=== PATIENT | male | born 1945 | race Caucasian/White ===

== ENCOUNTER 2020-04-05 15:58 | Inpatient (IN) | payer MEDICARE, OTHER ==
[~2020-04-05] VITALS: Ht 180.3 cm; Wt 97.5 kg
[2020-04-05] MEDS ORDERED: ATOR10TA PO (16:29)
[2020-04-05] MEDS ORDERED: TAMS-12 PO (16:29)
[2020-04-05] MEDS ORDERED: BLOOD SUGAR DIAGNOSTIC 1 EACH STRIP IN ONE (16:30)
[2020-04-05] MEDS ORDERED: MAG HYDROX/AL HYDROX/SIMETH 30 ML UDC PO PRN (16:30)
[2020-04-05] MEDS ORDERED: TEMAZEPAM 7.5 MG CAPSULE PO PRN (16:30)
[2020-04-05] MEDS ORDERED: MAGNESIUM HYDROXIDE 30 ML UDC PO PRN (16:30)
[2020-04-05] MEDS ORDERED: UNK HTN (16:42)
[2020-04-05 19:47] VITALS: BP 117/71
[2020-04-05] MEDS: ACETAMINOPHEN 325 MG TABLET PO PRN (20:09)
[2020-04-05] MEDS: ATORVASTATIN 10 MG TABLET PO SCH (21:29)
[2020-04-05] MEDS: TAMSULOSIN 0.4 MG CAP.SR.24H PO SCH (21:29)
[2020-04-06] MEDS: ACETAMINOPHEN 325 MG TABLET PO PRN (02:04)
[2020-04-06 08:00] VITALS: BP 124/74
[2020-04-06 08:03] LABS: CHOLESTEROL 106 mg/dL (<200); HDL CHOLESTEROL 35 mg/dL (40-60); LDL 59 mg/dL (0-99); TRIGLYCERIDES 215 mg/dL (30-150)
[2020-04-06 09:26] LABS: ALBUMIN 3.2 g/dL (3.4-5.0); BILIRUBIN,TOTAL 0.7 mg/dL (0.2-1.0); CALCIUM, SERUM 8.9 mg/dL (8.5-10.1); CREATININE 0.9 mg/dL (0.6-1.3); POTASSIUM 3.9 mmol/L (3.5-5.1)
[2020-04-06] MEDS: risperiDONE-M 0.5 MG TAB.RAPDIS PO SCH ×3 (11:00→21:00)
[2020-04-06] MEDS: DIVALPROEX SODIUM 125 MG CAP.SPRINK PO SCH ×2 (12:55→16:33)
[2020-04-06 16:00] VITALS: BP 153/86
[2020-04-06 20:51] VITALS: BP 132/87
[2020-04-06] MEDS: ATORVASTATIN 10 MG TABLET PO SCH (21:46)
[2020-04-06] MEDS: TAMSULOSIN 0.4 MG CAP.SR.24H PO SCH (21:46)
[2020-04-07] MEDS: ACETAMINOPHEN 325 MG TABLET PO PRN (02:15)
[2020-04-07 08:00] VITALS: BP 128/78
[2020-04-07] MEDS: risperiDONE-M 0.5 MG TAB.RAPDIS PO SCH ×4 (08:44→21:00)
[2020-04-07] MEDS: DIVALPROEX SODIUM 125 MG CAP.SPRINK PO SCH ×4 (08:45→16:05)
[2020-04-07 16:00] VITALS: BP 145/107
[2020-04-07 20:00] VITALS: BP 139/93
[2020-04-07] MEDS: TAMSULOSIN 0.4 MG CAP.SR.24H PO SCH (21:35)
[2020-04-07] MEDS: ATORVASTATIN 10 MG TABLET PO SCH (21:35)
[2020-04-08] MEDS: ACETAMINOPHEN 325 MG TABLET PO PRN (00:11)
[2020-04-08 08:00] VITALS: BP 132/72
[2020-04-08] MEDS: risperiDONE-M 0.5 MG TAB.RAPDIS PO SCH ×4 (08:00→20:45)
[2020-04-08] MEDS: DIVALPROEX SODIUM 125 MG CAP.SPRINK PO SCH ×4 (08:59→16:24)
[2020-04-08 16:00] VITALS: BP 129/71
[2020-04-08 20:00] VITALS: BP 140/87
[2020-04-08] MEDS: ATORVASTATIN 10 MG TABLET PO SCH (21:07)
[2020-04-08] MEDS: TAMSULOSIN 0.4 MG CAP.SR.24H PO SCH (21:08)
[2020-04-09 08:00] VITALS: BP 128/78
[2020-04-09] MEDS: risperiDONE-M 0.5 MG TAB.RAPDIS PO SCH ×3 (08:00→20:48)
[2020-04-09] MEDS: DIVALPROEX SODIUM 125 MG CAP.SPRINK PO SCH ×3 (08:17→16:18)
[2020-04-09 16:00] VITALS: BP 115/71
[2020-04-09 20:20] VITALS: BP 113/71
[2020-04-09] MEDS: ATORVASTATIN 10 MG TABLET PO SCH (21:30)
[2020-04-09] MEDS: TAMSULOSIN 0.4 MG CAP.SR.24H PO SCH (21:31)
[2020-04-10] MEDS: ACETAMINOPHEN 325 MG TABLET PO PRN (06:04)
[2020-04-10 08:00] VITALS: BP 119/81
[2020-04-10] MEDS: risperiDONE-M 0.5 MG TAB.RAPDIS PO SCH ×4 (08:00→21:00)
[2020-04-10] MEDS: DIVALPROEX SODIUM 125 MG CAP.SPRINK PO SCH ×5 (09:00→17:30)
[2020-04-10 16:00] VITALS: BP 125/80
[2020-04-10 19:57] VITALS: BP 121/80
[2020-04-10] MEDS: TAMSULOSIN 0.4 MG CAP.SR.24H PO SCH (21:39)
[2020-04-10] MEDS: ATORVASTATIN 10 MG TABLET PO SCH (21:43)
[2020-04-11 08:00] VITALS: BP 122/73
[2020-04-11] MEDS: risperiDONE-M 0.5 MG TAB.RAPDIS PO SCH ×6 (08:00→21:25)
[2020-04-11] MEDS: DIVALPROEX SODIUM 125 MG CAP.SPRINK PO SCH ×5 (08:33→16:54)
[2020-04-11] MEDS ORDERED: OLANZAPINE 10 MG VIAL IM PRN (12:30)
[2020-04-11 16:00] VITALS: BP 108/71
[2020-04-11 20:27] VITALS: BP 143/88
[2020-04-11] MEDS: ATORVASTATIN 10 MG TABLET PO SCH (21:25)
[2020-04-11] MEDS: TAMSULOSIN 0.4 MG CAP.SR.24H PO SCH (21:25)
[2020-04-11] MEDS: LORAZEPAM 0.5 MG TABLET PO PRN (21:26)
[2020-04-12 08:00] VITALS: BP 119/75
[2020-04-12] MEDS: risperiDONE-M 0.5 MG TAB.RAPDIS PO SCH ×2 (08:29→21:21)
[2020-04-12] MEDS: DIVALPROEX SODIUM 125 MG CAP.SPRINK PO SCH ×5 (08:33→21:21)
[2020-04-12] MEDS ORDERED: OLANZAPINE 10 MG VIAL IM PRN ×2 (13:00)
[2020-04-12 16:00] VITALS: BP 111/62
[2020-04-12 20:18] VITALS: BP 118/74
[2020-04-12] MEDS: ATORVASTATIN 10 MG TABLET PO SCH (21:21)
[2020-04-12] MEDS: TAMSULOSIN 0.4 MG CAP.SR.24H PO SCH (21:21)
[2020-04-13 08:00] VITALS: BP 135/76
[2020-04-13] MEDS: DIVALPROEX SODIUM 125 MG CAP.SPRINK PO SCH ×2 (08:43→21:47)
[2020-04-13] MEDS: risperiDONE-M 0.5 MG TAB.RAPDIS PO SCH ×2 (08:44→21:46)
[2020-04-13 16:00] VITALS: BP 105/72
[2020-04-13 20:44] VITALS: BP 124/76
[2020-04-13] MEDS: TAMSULOSIN 0.4 MG CAP.SR.24H PO SCH (21:26)
[2020-04-13] MEDS: ATORVASTATIN 10 MG TABLET PO SCH (22:00)
[2020-04-14 08:00] VITALS: BP 117/83
[2020-04-14] MEDS: risperiDONE-M 0.5 MG TAB.RAPDIS PO SCH ×2 (08:14→21:02)
[2020-04-14] MEDS: DIVALPROEX SODIUM 125 MG CAP.SPRINK PO SCH ×2 (09:12→21:02)
[2020-04-14 16:00] VITALS: BP_SYST 122; BP_SYST 134; BP_DIAS 77; BP_DIAS 98
[2020-04-14 19:50] VITALS: BP 112/63
[2020-04-14] MEDS: ATORVASTATIN 10 MG TABLET PO SCH (21:01)
[2020-04-14] MEDS: TAMSULOSIN 0.4 MG CAP.SR.24H PO SCH (21:01)
[2020-04-15 08:00] VITALS: BP 110/75
[2020-04-15] MEDS: risperiDONE-M 0.5 MG TAB.RAPDIS PO SCH ×2 (08:54→20:58)
[2020-04-15] MEDS: DIVALPROEX SODIUM 125 MG CAP.SPRINK PO SCH ×2 (08:54→20:58)
[2020-04-15 16:00] VITALS: BP 118/67
[2020-04-15 19:57] VITALS: BP 117/78
[2020-04-15] MEDS: ATORVASTATIN 10 MG TABLET PO SCH (21:04)
[2020-04-15] MEDS: TAMSULOSIN 0.4 MG CAP.SR.24H PO SCH (21:06)
[2020-04-16 08:00] VITALS: BP 121/84
[2020-04-16] MEDS: risperiDONE-M 0.5 MG TAB.RAPDIS PO SCH ×2 (08:37→21:28)
[2020-04-16] MEDS: DIVALPROEX SODIUM 125 MG CAP.SPRINK PO SCH ×2 (08:59→21:26)
[2020-04-16 13:16] LABS: BASOPHILS % (AUTO) 0.5 % (0.0-2.0); HEMATOCRIT 43 % (39-51); HEMOGLOBIN 13.5 g/dL (13.5-17.5); LYMPHOCYTES # (AUTO) 2.4 /CMM (0.8-4.8); LYMPHOCYTES % (AUTO) 42.9 % (20.0-44.0); MEAN CORPUSCULAR HGB CONC 32 g/dl (31.0-36.0); MEAN CORPUSCULAR VOLUME 73 fL (80-96); MONOCYTES # (AUTO) 0.5 /CMM (0.1-1.30); MONOCYTES % (AUTO) 9.8 % (2.0-12.0); NEUTROPHILS # (AUTO) 2.4 /CMM (1.8-8.9); NEUTROPHILS % (AUTO) 42.8 % (43.0-81.0); PLATELET COUNT (AUTO) 288 /CMM (150-450); RED BLOOD CELL COUNT(AUTO) 5.83 MIL/uL (4.5-6.0); WHITE BLOOD COUNT (AUTO) 5.5 K/uL (4.3-11.0)
[2020-04-16 14:27] LABS: ALBUMIN 3.5 g/dL (3.4-5.0); BILIRUBIN,TOTAL 1.1 mg/dL (0.2-1.0); CALCIUM, SERUM 8.9 mg/dL (8.5-10.1); CREATININE 0.9 mg/dL (0.6-1.3); TOTAL PROTEIN, SERUM 7.5 g/dL (6.4-8.2)
[2020-04-16 14:41] LABS: LYMPHOCYTES % (MANUAL) 46 % (16-48); MONOCYTES % (MANUAL) 6 % (0-11.0); NEUTROPHILS % (MANUAL) 48 (42-76)
[2020-04-16 16:00] VITALS: BP 120/84
[2020-04-16 20:00] VITALS: BP 120/86
[2020-04-16] MEDS ORDERED: ATORVASTATIN 10 MG TABLET ONE (21:23)
[2020-04-16] MEDS: ATORVASTATIN 10 MG TABLET PO SCH (21:27)
[2020-04-16] MEDS: TAMSULOSIN 0.4 MG CAP.SR.24H PO SCH (21:27)
[2020-04-17 08:00] VITALS: BP 124/82
[2020-04-17] MEDS: risperiDONE-M 0.5 MG TAB.RAPDIS PO SCH (08:00)
[2020-04-17] MEDS: DIVALPROEX SODIUM 125 MG CAP.SPRINK PO SCH ×2 (08:41→21:17)
[2020-04-17] MEDS ORDERED: risperiDONE-M 0.5 MG TAB.RAPDIS PO PRN (11:30)
[2020-04-17] MEDS ORDERED: INVEGA SUSTENNA 156 MG IM ONE (13:00)
[2020-04-17 16:00] VITALS: BP 94/76
[2020-04-17 20:59] VITALS: BP 133/90
[2020-04-17] MEDS: TAMSULOSIN 0.4 MG CAP.SR.24H PO SCH (21:18)
[2020-04-17] MEDS: ATORVASTATIN 10 MG TABLET PO SCH (21:18)
[2020-04-18 08:00] VITALS: BP 128/61
[2020-04-18] MEDS: DIVALPROEX SODIUM 125 MG CAP.SPRINK PO SCH ×2 (08:49→20:14)
[2020-04-18 16:00] VITALS: BP 105/73
[2020-04-18 20:38] VITALS: BP 120/80
[2020-04-18] MEDS: TAMSULOSIN 0.4 MG CAP.SR.24H PO SCH (21:14)
[2020-04-18] MEDS: ATORVASTATIN 10 MG TABLET PO SCH (21:14)
[2020-04-19 07:25] LABS: BASOPHILS % (AUTO) 0.4 % (0.0-2.0); EOSINOPHILS % (AUTO) 4.7 % (0.0-6.0); HEMATOCRIT 44 % (39-51); HEMOGLOBIN 13.7 g/dL (13.5-17.5); LYMPHOCYTES # (AUTO) 2.6 /CMM (0.8-4.8); LYMPHOCYTES % (AUTO) 41.6 % (20.0-44.0); MEAN CORPUSCULAR HGB CONC 31 g/dl (31.0-36.0); MEAN CORPUSCULAR VOLUME 74 fL (80-96); MONOCYTES # (AUTO) 0.7 /CMM (0.1-1.30); MONOCYTES % (AUTO) 10.5 % (2.0-12.0); NEUTROPHILS # (AUTO) 2.7 /CMM (1.8-8.9); NEUTROPHILS % (AUTO) 42.8 % (43.0-81.0); PLATELET COUNT (AUTO) 291 /CMM (150-450); RED BLOOD CELL COUNT(AUTO) 5.88 MIL/uL (4.5-6.0); WHITE BLOOD COUNT (AUTO) 6.3 K/uL (4.3-11.0)
[2020-04-19 07:51] LABS: ALBUMIN 3.5 g/dL (3.4-5.0); BILIRUBIN,TOTAL 1.1 mg/dL (0.2-1.0); CREATININE 0.8 mg/dL (0.6-1.3); POTASSIUM 3.9 mmol/L (3.5-5.1); TOTAL PROTEIN, SERUM 7.7 g/dL (6.4-8.2)
[2020-04-19 08:00] VITALS: BP 112/70
[2020-04-19] MEDS: DIVALPROEX SODIUM 125 MG CAP.SPRINK PO SCH ×2 (08:48→20:29)
[2020-04-19 16:00] VITALS: BP 121/85
[2020-04-19 20:29] VITALS: BP 121/80
[2020-04-19] MEDS: TAMSULOSIN 0.4 MG CAP.SR.24H PO SCH (21:06)
[2020-04-19] MEDS: ATORVASTATIN 10 MG TABLET PO SCH (21:06)
[2020-04-20 08:00] VITALS: BP 130/68
[2020-04-20] MEDS: DIVALPROEX SODIUM 125 MG CAP.SPRINK PO SCH ×2 (08:45→21:03)
[2020-04-20 16:00] VITALS: BP 115/71
[2020-04-20 20:07] VITALS: BP 115/75
[2020-04-20 20:14] VITALS: BP 115/75
[2020-04-20] MEDS: TAMSULOSIN 0.4 MG CAP.SR.24H PO SCH (21:26)
[2020-04-20] MEDS: ATORVASTATIN 10 MG TABLET PO SCH (21:26)
[2020-04-21 08:00] VITALS: BP 113/67
[2020-04-21] MEDS: DIVALPROEX SODIUM 125 MG CAP.SPRINK PO SCH ×2 (08:31→21:07)
[2020-04-21] MEDS: LORAZEPAM 0.5 MG TABLET PO PRN (13:56)
[2020-04-21 16:00] VITALS: BP 146/89
[2020-04-21 20:44] VITALS: BP 118/69
[2020-04-21] MEDS: ATORVASTATIN 10 MG TABLET PO SCH (21:07)
[2020-04-21] MEDS: TAMSULOSIN 0.4 MG CAP.SR.24H PO SCH (21:07)
[2020-04-22 08:00] VITALS: BP 145/81
[2020-04-22] MEDS: DIVALPROEX SODIUM 125 MG CAP.SPRINK PO SCH ×2 (08:16→20:28)
[2020-04-22 16:00] VITALS: BP 121/73
[2020-04-22 20:06] VITALS: BP 111/70
[2020-04-22] MEDS: ATORVASTATIN 10 MG TABLET PO SCH (21:28)
[2020-04-22] MEDS: TAMSULOSIN 0.4 MG CAP.SR.24H PO SCH (21:28)
[2020-04-23 08:00] VITALS: BP 117/77
[2020-04-23 08:35] LABS: BASOPHILS % (AUTO) 0.7 % (0.0-2.0); EOSINOPHILS % (AUTO) 5.1 % (0.0-6.0); HEMATOCRIT 41 % (39-51); HEMOGLOBIN 13.1 g/dL (13.5-17.5); LYMPHOCYTES % (AUTO) 43.6 % (20.0-44.0); MEAN CORPUSCULAR HGB CONC 32 g/dl (31.0-36.0); MEAN CORPUSCULAR VOLUME 73 fL (80-96); MONOCYTES # (AUTO) 0.3 /CMM (0.1-1.30); MONOCYTES % (AUTO) 7.3 % (2.0-12.0); NEUTROPHILS % (AUTO) 43.3 % (43.0-81.0); PLATELET COUNT (AUTO) 241 /CMM (150-450); RED BLOOD CELL COUNT(AUTO) 5.61 MIL/uL (4.5-6.0); WHITE BLOOD COUNT (AUTO) 4.7 K/uL (4.3-11.0)
[2020-04-23 08:54] LABS: ALBUMIN 3.2 g/dL (3.4-5.0); BILIRUBIN,TOTAL 0.9 mg/dL (0.2-1.0); CALCIUM, SERUM 8.6 mg/dL (8.5-10.1); CREATININE 0.9 mg/dL (0.6-1.3); POTASSIUM 3.6 mmol/L (3.5-5.1); TOTAL PROTEIN, SERUM 6.9 g/dL (6.4-8.2)
[2020-04-23] MEDS: DIVALPROEX SODIUM 125 MG CAP.SPRINK PO SCH ×2 (09:12→21:11)
[2020-04-23 16:00] VITALS: BP 107/64
[2020-04-23 19:49] VITALS: BP 104/56
[2020-04-23 19:58] VITALS: BP 104/56
[2020-04-23 21:02] VITALS: BP 109/64
[2020-04-23] MEDS: TAMSULOSIN 0.4 MG CAP.SR.24H PO SCH (21:45)
[2020-04-23] MEDS: ATORVASTATIN 10 MG TABLET PO SCH (21:46)
[2020-04-24 08:00] VITALS: BP 127/83
[2020-04-24] MEDS: DIVALPROEX SODIUM 125 MG CAP.SPRINK PO SCH ×2 (08:57→21:34)
[2020-04-24 16:00] VITALS: BP 107/76
[2020-04-24 20:09] VITALS: BP 106/71
[2020-04-24] MEDS ORDERED: DIVALPROEX SODIUM 125 MG CAP.SPRINK ONE (21:32)
[2020-04-24] MEDS: TAMSULOSIN 0.4 MG CAP.SR.24H PO SCH (21:33)
[2020-04-24] MEDS: ATORVASTATIN 10 MG TABLET PO SCH (21:34)
[2020-04-25 08:00] VITALS: BP 118/74
[2020-04-25] MEDS: DIVALPROEX SODIUM 125 MG CAP.SPRINK PO SCH (08:50)
== END 2020-04-25 15:20 | DRG 885 ==
LOC: GPS 15:58
PROVIDERS: ADMIT Psychiatry & Neurology Psychosomatic Medicine; ATTEND Nurse Practitioner Family
DX: F25.0 Schizoaffective disorder, bipolar type (principal); E43 Unspecified severe protein-calorie malnutrition; N17.0 Acute kidney failure with tubular necrosis; E11.65 Type 2 diabetes mellitus with hyperglycemia; K21.9 Gastro-esophageal reflux disease without esophagitis; E88.81 Metabolic syndrome and other insulin resistance; G31.84 Mild cognitive impairment of uncertain or unknown etiology; Z73.6 Limitation of activities due to disability; F29 Unspecified psychosis not due to a substance or known physiological condition; E78.5 Hyperlipidemia, unspecified; F41.9 Anxiety disorder, unspecified; N40.0 Benign prostatic hyperplasia without lower urinary tract symptoms; Z91.19 Patient's noncompliance with other medical treatment and regimen; Z91.14 Patient's other noncompliance with medication regimen; Z87.828 Personal history of other (healed) physical injury and trauma; Z79.899 Other long term (current) drug therapy; R27.8 Other lack of coordination; R53.1 Weakness; Z91.81 History of falling
CPT/HCPCS: 36415; 80053-TC; 80061-TC; 80164-TC; 82962-TC; 84484-TC; 85025-TC; 87081-TC; 93307-TC; J3490

== ENCOUNTER 2022-01-23 19:47 | Inpatient (IN) | payer MEDICARE, OTHER ==
[~2022-01-23] VITALS: Ht 177.8 cm; Wt 106.6 kg
[~2022-01-23 19:47] MED LIST: ATOR10TA PO; TAMS-12 PO; UNK HTN
[2022-01-23 20:22] LABS: BASOPHILS % (AUTO) 0.5 % (0.0-2.0); EOSINOPHILS % (AUTO) 4.9 % (0.0-6.0); HEMATOCRIT 45 % (39-51); HEMOGLOBIN 13.9 g/dL (13.5-17.5); LYMPHOCYTES # (AUTO) 3.2 K/uL (0.8-4.8); LYMPHOCYTES % (AUTO) 54.3 % (20.0-44.0); MEAN CORPUSCULAR HGB CONC 31 g/dl (31.0-36.0); MEAN CORPUSCULAR VOLUME 71 fL (80-96); MONOCYTES # (AUTO) 0.5 K/uL (0.1-1.30); MONOCYTES % (AUTO) 9.4 % (2.0-12.0); NEUTROPHILS # (AUTO) 1.8 K/uL (1.8-8.9); NEUTROPHILS % (AUTO) 30.9 % (43.0-81.0); PLATELET COUNT (AUTO) 299 K/uL (150-450); RED BLOOD CELL COUNT(AUTO) 6.26 MIL/uL (4.5-6.0); WHITE BLOOD COUNT (AUTO) 5.8 K/uL (4.3-11.0)
--- NOTE | 2022-01-23 20:29 | NUR ---
PT BIBPA FOR GENERALIZE WEAKNESS, USUALLY WALKS WITH A WALKER HX OF [place]. PT AWAKE AND ALERT X2, STATES HE DOES NOT KNOW WHY HE WAS SENT AND DENIES ANY COMPLAINTS. 20G IV STARTED AT . COVID SWAB SENT TO LAB, POC BG 138. URINAL PROVIDED AT BEDSIDE.
[2022-01-23 20:53] LABS: ALANINE AMINOTRANSFERASE 18 U/L (12-78); ALBUMIN 3.4 g/dL (3.4-5.0); ALKALINE PHOSPHATASE 90 U/L (46-116); ASPARTATE AMINOTRANSFERASE 10 U/L (15-37); BILIRUBIN,DIRECT 0.2 mg/dL (0.0-0.2); BILIRUBIN,TOTAL 0.9 mg/dL (0.2-1.0); CALCIUM, SERUM 8.8 mg/dL (8.5-10.1); CARBON DIOXIDE 30 mmol/L (21-32); CHLORIDE 102 mmol/L (98-107); CREATININE 0.9 mg/dL (0.6-1.3); GLUCOSE 139 mg/dL (74-106); POTASSIUM 3.9 mmol/L (3.5-5.1); SODIUM SERUM 139 mmol/L (136-145); TOTAL PROTEIN, SERUM 7.6 g/dL (6.4-8.2); UREA NITROGEN, BLOOD 12 mg/dL (7-18)
[2022-01-23 21:42] LABS: EOSINOPHILS % (MANUAL) 5 % (0-4); LYMPHOCYTES % (MANUAL) 66 % (16-48); MONOCYTES % (MANUAL) 8 % (0-11.0); NEUTROPHILS % (MANUAL) 21 (42-76)
[2022-01-23] MEDS ORDERED: MAG HYDROX/AL HYDROX/SIMETH 30 ML UDC PO PRN (22:00)
[2022-01-23] MEDS ORDERED: ACETAMINOPHEN 325 MG TABLET PO PRN (22:00)
[2022-01-23] MEDS ORDERED: Z GUARD REMEDY 4 OZ OINT TP PRN (22:00)
[2022-01-23] MEDS ORDERED: ZOLPIDEM TARTRATE 5 MG TABLET PO PRN (22:00)
[2022-01-23] MEDS ORDERED: MAGNESIUM HYDROXIDE 30 ML UDC PO PRN (22:00)
[2022-01-23] MEDS ORDERED: ONDANSETRON HCL/PF 4 MG/2 ML VIAL IVP PRN (22:00)
--- NOTE | 2022-01-23 22:30 | NUR ---
20G IV STARTED AT . SALINE LOCKED.
--- NOTE | 2022-01-23 22:40 | NUR ---
URINE SENT TO LAB
[2022-01-23 23:03] LABS: BILIRUBIN,URINE NEGATIVE (NEGATIVE); COLOR,URINE YELLOW (YELLOW); LEUKOCYTE ESTERASE ,URINE NEGATIVE (NEGATIVE); NITRITE, URINE NEGATIVE (NEGATIVE); PH,URINE 5.5 (5.0-8.0); PROTEIN,URINE NEGATIVE (NEGATIVE); UGLUCOSE NEGATIVE (NEGATIVE); UROBILINOGEN,URINE 0.2 EU/dL (0.2)
--- NOTE | 2022-01-24 01:57 | NUR ---
REPORT GIVEN TO ENRRIQUE JANE FOR MAXIME
--- NOTE | 2022-01-24 01:59 | NUR ---
PT TRANSPORTED TO ROOM 306 VIA [facility]
[2022-01-24 02:15] VITALS: BP 120/79
[2022-01-24] MEDS: BENZTROPINE MESYLATE (1 MG) 1 MG TABLET PO SCH ×2 (02:26→21:36)
[2022-01-24] MEDS: TAMSULOSIN 0.4 MG CAP.SR.24H PO SCH ×2 (02:26→21:36)
[2022-01-24] MEDS: ATORVASTATIN 10 MG TABLET PO SCH ×2 (02:26→21:35)
--- NOTE | 2022-01-24 02:30 | NUR ---
MS CONTROL SUPERVISOR NOTE RECEIVED PATIENT FROM ER VIA WHEELCHAIR. PATIENT IS AMBULATORY. PATIENT IS AWAKE, ALERT AND ORIENTED X 2. ON ROOM AIR; TOLERATING WELL. BREATHING EVEN AND NONLABORED. INITIAL VITAL SIGNS TAKEN AND RECORDED FOLLOWS: T-98, TX-68, RR-18, BP-120/79, O2 SAT-98%; AFEBRILE. NOT IN ANY FORM OF RESPIRATORY DISTRESS. DENIES ANY PAIN OR DISCOMFORT AT THIS TIME. WITH IV ACCESS AT RIGHT HAND 20G; PATENT, INTACT AND SALINE LOCKED. WHOLE BODY ASSESSMENT DONE: SKIN WARM TO TOUCH AND INTACT. ORIENTED TO STAFF, ROOM AND UNIT. ALL PERSONAL BELONGINGS CHECKED AND INVENTORY DONE. SAFETY PRECAUTIONS IMPLEMENTED: BED ALARM TURNED ON, CALL LIGHT AND TABLE WITHIN EASY REACH, SIDE RAILS UP X 2, BED IN LOWEST LOCKED POSITION. WILL CONTINUE PLAN OF CARE.
[2022-01-24 04:00] VITALS: BP 146/90
[2022-01-24 06:09] LABS: BASOPHILS % (AUTO) 0.5 % (0.0-2.0); EOSINOPHILS % (AUTO) 4.5 % (0.0-6.0); HEMATOCRIT 42 % (39-51); HEMOGLOBIN 13.3 g/dL (13.5-17.5); LYMPHOCYTES # (AUTO) 2.6 K/uL (0.8-4.8); MEAN CORPUSCULAR HGB CONC 32 g/dl (31.0-36.0); MEAN CORPUSCULAR VOLUME 71 fL (80-96); MONOCYTES # (AUTO) 0.6 K/uL (0.1-1.30); NEUTROPHILS # (AUTO) 2.1 K/uL (1.8-8.9); PLATELET COUNT (AUTO) 300 K/uL (150-450); RED BLOOD CELL COUNT(AUTO) 5.92 MIL/uL (4.5-6.0); WHITE BLOOD COUNT (AUTO) 5.5 K/uL (4.3-11.0)
[2022-01-24] MEDS: DIVALPROEX SODIUM 125 MG CAP.SPRINK PO SCH ×4 (06:09→21:37)
--- NOTE | 2022-01-24 06:09 | NUR ---
RN NOTE DIVALPROEX SODIUM 500 MG HELD PER PATIENT'S REQUEST. EXPLAINED RISKS AND BENEFITS OF FOLLOWING REGIMEN X 3; PATIENT STILL REFUSED TO TAKE MED X 3.
[2022-01-24 06:37] LABS: CALCIUM, SERUM 8.3 mg/dL (8.5-10.1); CREATININE 0.7 mg/dL (0.6-1.3); MAGNESIUM 2.1 mg/dL (1.8-2.4); PHOSPHORUS 3.9 mg/dL (2.5-4.9); POTASSIUM 4.1 mmol/L (3.5-5.1)
--- NOTE | 2022-01-24 06:45 | NUR ---
MS RN CLOSING NOTE PATIENT IN BED; AWAKE, A/O X 2. STABLE ON ROOM AIR. BREATHING EQUAL AND UNLABORED. IN NO ACUTE DISTRESS. NO C/O PAIN OR DISCOMFORT AT THIS TIME. WITH IV ACCESS AT RIGHT HAND 20G; PATENT, INTACT AND SALINE LOCKED. SAFETY PRECAUTIONS MAINTAINED: BED ALARM TURNED ON, CALL LIGHT AND TABLE WITHIN EASY REACH, SIDE RAILS UP X 2, BED IN LOWEST LOCKED POSITION. ENDORSED TO ENRRIQUE CHACON FOR MAXIME.
[2022-01-24 06:54] LABS: THYROID STIMULATING HORMONE 1.818 uIU/mL (0.358-3.74)
--- NOTE | 2022-01-24 07:20 | NUR ---
ms rn received on bed, awake,alert,oriented x2,denies pain,respirations even and unlabored,no sob noted, stable on room air,will monitor patient.
[2022-01-24 08:00] VITALS: BP 126/76
[2022-01-24] MEDS: risperiDONE 0.25 MG TABLET PO SCH ×2 (08:42→17:20)
--- NOTE | 2022-01-24 09:00 | NUR ---
ms myers breakfast served,due meds given,tolerated well.
[2022-01-24 10:29] LABS: BAND % (MANUAL) 3 % (0.0-5.0); BASOPHILS % (MANUAL) 0 % (0.0-2.0); EOSINOPHILS % (MANUAL) 7 % (0-4); LYMPHOCYTES % (MANUAL) 53 % (16-48); MONOCYTES % (MANUAL) 9 % (0-11.0); NEUTROPHILS % (MANUAL) 28 (42-76)
--- NOTE | 2022-01-24 10:30 | NUR ---
ms rn was seen by dr. jonas w/ orders made and carried out.
[2022-01-24 16:00] VITALS: BP 107/75
--- NOTE | 2022-01-24 18:27 | NUR ---
ms rn on bed,all needs attended.
--- NOTE | 2022-01-24 19:15 | NUR ---
MS RN OPENING NOTE RECEIVED PATIENT SLEEPING IN BED. PT A/O X 2, ABLE TO VERBALIZE NEEDS. STABLE ON ROOM AIR. BREATHING EQUAL AND UNLABORED. IN NO ACUTE DISTRESS. NO C/O PAIN OR DISCOMFORT AT THIS TIME. IV ACCESS TO RIGHT HAND 20 G, IV PATENT, INTACT AND SALINE LOCKED. SAFETY PRECAUTIONS MAINTAINED: BED ALARM TURNED ON, CALL LIGHT AND TABLE WITHIN EASY REACH, SIDE RAILS UP X 2, BED IN LOWEST LOCKED POSITION. WILL CONTINUE TO MONITOR PT.
[2022-01-24 20:00] VITALS: BP 118/69
--- NOTE | 2022-01-24 21:00 | NUR ---
PT REFUSES MED DEPAKOTE SPRINKLE. EDUCATED PT ON ACTION OF DEPAKOTE, AND IMPORTANCE TO TAKE IT. PT STILL DECLINES.
[2022-01-24] MEDS: risperiDONE 1 MG TABLET PO SCH (21:35)
[2022-01-25] MEDS: DIVALPROEX SODIUM 125 MG CAP.SPRINK PO SCH ×3 (05:52→21:00)
--- NOTE | 2022-01-25 06:59 | NUR ---
MS RN CLOSING NOTE PATIENT IN BED; AWAKE, A/O X 2. STABLE ON ROOM AIR. BREATHING EQUAL AND UNLABORED. IN NO ACUTE DISTRESS NOTED. NO C/O PAIN OR DISCOMFORT AT THIS TIME. WITH IV ACCESS TO RIGHT HAND 20 G; PATENT, INTACT AND SALINE LOCKED. SAFETY PRECAUTIONS MAINTAINED: BED ALARM TURNED ON, CALL LIGHT AND TABLE WITHIN EASY REACH, SIDE RAILS UP X 2, BED IN LOWEST LOCKED POSITION. WILL ENDORSE TO MORNING SHIFT NURSE FOR MAXIME.
[2022-01-25 08:00] VITALS: BP 129/78
[2022-01-25] MEDS: risperiDONE 0.25 MG TABLET PO SCH ×2 (08:43→17:00)
--- NOTE | 2022-01-25 08:43 | NUR ---
MS?RN PT REFUSED RISPERIDONE PO . OFFERED X3
--- NOTE | 2022-01-25 14:20 | NUR ---
MS/RN Pt refused Depakote PO for 1300 offered x3
[2022-01-25 16:00] VITALS: BP 122/55
--- NOTE | 2022-01-25 17:23 | NUR ---
MS/RN PT REFUSED RISPERDAL OFFERED X3
--- NOTE | 2022-01-25 19:30 | NUR ---
MS RN OPENING NOTE RECEIVED PATIENT IN BED, WITH HOB ELEVATED, ALERT AND ORIENTED X2. ABLE TO MAKE NEEDS KNOWN. AFEBRILE AND NOT IN ANY FORM OF ACUTE DISTRESS. BREATHING EVEN AND NON LABORED. NO C/O PAIN OR DISCOMFORT AT THIS TIME. WITH IV ACCESS ON R HAND 20G- SL. SAFETY MEASURES IN PLACE. KEPT BED IN LOCKED AND IN LOW POSITION TO REDUCE INJURY. SIDE RAILS UP X2. ADVISED TO USE THE CALL LIGHT WHEN IN NEED OF ASSISTANCE.
[2022-01-25 20:33] VITALS: BP 116/77
[2022-01-25] MEDS: risperiDONE 1 MG TABLET PO SCH (21:09)
[2022-01-25] MEDS: BENZTROPINE MESYLATE (1 MG) 1 MG TABLET PO SCH (21:09)
[2022-01-25] MEDS: ATORVASTATIN 10 MG TABLET PO SCH (21:09)
[2022-01-25] MEDS: TAMSULOSIN 0.4 MG CAP.SR.24H PO SCH (21:09)
--- NOTE | 2022-01-25 21:18 | NUR ---
MS RN NOTE PATIENT REFUSED DEPAKOTE DESPITE EXPLAINING RISK AND CONSEQUENCE OF NOT TAKING THE MEDICATION. PER REPORT FROM PRIOR SHIFT, HE DOESN'T WANT TO TAKE SOME OF HIS MEDICATIONS ESPECIALLY PSYCH MEDS.
[2022-01-26] MEDS: DIVALPROEX SODIUM 125 MG CAP.SPRINK PO SCH ×3 (05:00→21:48)
--- NOTE | 2022-01-26 06:34 | NUR ---
MS RN CLOSING NOTE PATIENT IN BED, ASLEEP BUT EASY TO AROUSE AND RESPONSIVE. ALERT AND ORIENTED X2. ABLE TO MAKE NEEDS KNOWN. AFEBRILE AND NOT IN ANY FORM OF ACUTE DISTRESS. BREATHING EVEN AND NON LABORED. NO C/O PAIN OR DISCOMFORT THROUGHOUT THE SHIFT. WITH IV ACCESS ON R HAND 20G- SL. MEDICATED ORDERED. ENCOURAGED ORAL FLUID INTAKE. SAFETY MEASURES IN PLACE. KEPT BED IN LOCKED AND IN LOW POSITION TO REDUCE INJURY. SIDE RAILS UP X2. ADVISED TO USE THE CALL LIGHT WHEN IN NEED OF ASSISTANCE. ALL NURSING NEEDS ATTENDED. ENDORSED TO INCOMING SHIFT FOR CONTINUITY OF CARE.
--- NOTE | 2022-01-26 07:04 | NUR ---
MS RN OPENING NOTES RECEIVED PATIENT AWAKE IN BED, A/Ox2-3, ABLE TO MAKE NEEDS KNOWN. ON ROOM AIR NO S/S OF RESPIRATORY DISTRESS. IV ACCESS R HAND #20 S/L, INTACT AND PATENT. AMBULATORY, USES URINAL. SKIN INTACT. SAFETY MEASURES IN PLACE: BED LOCKED AND IN LOWEST POSITION, SIDE RAILS UPx3, CALL LIGHT WITHIN REACH, HOB ELEVATED. WILL CONTINUE TO MONITOR.
[2022-01-26] MEDS: risperiDONE 0.25 MG TABLET PO SCH ×2 (09:00→16:27)
--- NOTE | 2022-01-26 09:02 | NUR ---
RN NOTES PATIENT REFUSED MORNING DOSE OF RISPERDAL, RISKS AND BENEFITS EXPLAINED. V/S WNL, WILL CONTINUE TO MONITOR.
[2022-01-26] MEDS ORDERED: CHOL100043 PO (12:15)
[2022-01-26] MEDS ORDERED: BENZ0.5T43 PO (12:15)
[2022-01-26] MEDS ORDERED: OMEG1CAP PO (12:15)
[2022-01-26] MEDS ORDERED: RISP0.2515 PO ×2 (12:15)
[2022-01-26] MEDS ORDERED: DIVA125C2 PO (12:15)
[2022-01-26 16:00] VITALS: BP 118/56
--- NOTE | 2022-01-26 17:30 | NUR ---
RN NOTES PATIENT REFUSED AFTERNOON DEPAKOTE AND EVENING RISPERDAL. RISKS AND BENEFITS EXPLAINED. WILL CONTINUE TO MONITOR.
--- NOTE | 2022-01-26 18:38 | NUR ---
MS RN CLOSING NOTES PATIENT RESTING IN BED, A/Ox2-3, ABLE TO MAKE NEEDS KNOWN. STABLE ON ROOM AIR NO S/S OF RESPIRATORY DISTRESS. IV ACCESS R HAND #20 S/L, INTACT AND PATENT. AMBULATORY, USES URINAL. SKIN INTACT. SAFETY MEASURES MAINTAINED: BED LOCKED AND IN LOWEST POSITION, SIDE RAILS UPx3, CALL LIGHT WITHIN REACH, HOB ELEVATED. WILL ENDORSE TO NEXT SHIFT ANY MAXIME.
--- NOTE | 2022-01-26 19:30 | NUR ---
MS RN OPENING NOTES RECEIVED PATIENT AWAKE IN BED, A/O x2-3, ABLE TO MAKE NEEDS KNOWN. ON ROOM AIR, AND TOLERATING RA WELL. NO SOB OR RESPIRATORY DISTRESS. IV ACCESS RIGHT HAND #20 S/L, INTACT AND PATENT. AMBULATORY, USES URINAL. SKIN INTACT. SAFETY MEASURES IN PLACE: BED LOCKED AND IN LOWEST POSITION, SIDE RAILS UP x3, CALL LIGHT WITHIN REACH, HOB ELEVATED. WILL CONTINUE TO MONITOR PT.
[2022-01-26 20:00] VITALS: BP 111/73
[2022-01-26] MEDS: ATORVASTATIN 10 MG TABLET PO SCH (21:48)
[2022-01-26] MEDS: BENZTROPINE MESYLATE (1 MG) 1 MG TABLET PO SCH (21:48)
[2022-01-26] MEDS: risperiDONE 1 MG TABLET PO SCH (21:48)
[2022-01-26] MEDS: TAMSULOSIN 0.4 MG CAP.SR.24H PO SCH (21:49)
[2022-01-27] MEDS: DIVALPROEX SODIUM 125 MG CAP.SPRINK PO SCH ×2 (05:26→13:00)
--- NOTE | 2022-01-27 07:00 | NUR ---
MS RN CLOSING NOTE LEFT PATIENT RESTING IN BED, AWAKE. PT A/O x2-3, ABLE TO MAKE NEEDS KNOWN. STABLE ON ROOM AIR. NO RESPIRATORY DISTRESS, OR SOB NOTED. IV ACCESS R HAND #20 S/L, INTACT AND PATENT. SAFETY MEASURES MAINTAINED: BED LOCKED AND IN LOWEST POSITION, SIDE RAILS UPx3, CALL LIGHT WITHIN REACH, HOB ELEVATED. WILL ENDORSE TO NEXT SHIFT NURSE FOR CONTINUITY OF CARE.
--- NOTE | 2022-01-27 07:06 | NUR ---
MS RN OPENING NOTES RECEIVED PATIENT AWAKE IN BED, A/Ox2-3, ABLE TO MAKE NEEDS KNOWN. ON ROOM AIR NO S/S OF RESPIRATORY DISTRESS. IV ACCESS R HAND #20 S/L, INTACT AND PATENT. AMBULATORY, USES URINAL. SKIN INTACT. NO S/S OF PAIN OR DISCOMFORT. SAFETY MEASURES IN PLACE: BED LOCKED AND IN LOWEST POSITION, SIDE RAILS UPx2, CALL LIGHT WITHIN REACH, HOB ELEVATED. WILL CONTINUE TO MONITOR.
[2022-01-27 08:00] VITALS: BP 122/73
[2022-01-27] MEDS: risperiDONE 0.25 MG TABLET PO SCH (09:00)
--- NOTE | 2022-01-27 10:00 | NUR ---
RN NOTES PATIENT REFUSED ANY MEDICATION THIS MORNING, ATTEMPTED x3. CHARGE NURSE AND MD AWARE. WILL CONTINUE TO MONITOR.
--- NOTE | 2022-01-27 13:50 | NUR ---
RN NOTES PATIENT REFUSED AFTERNOON MEDICATION, ATTEMPTED x3, CHARGE NURSE AND MD AWARE, WILL CONTINUE TO MONITOR.
--- NOTE | 2022-01-27 16:05 | NUR ---
LACE WINDER NOTES PATIENT D/C BACK TO [facility], SPOKE WITH ENRRIQUE GUILLORY FOR REPORT. PATIENT STABLE A/Ox2-3 ABLE TO MAKE NEEDS KNOWN. PATIENT STABLE ON ROOM AIR. HEALTH TEACHINGS AND DISCHARGE INSTRUCTIONS EXPLAINED TO PATIENT. VERBALIZED UNDERSTANDING. PATIENT HAS ALL BELONGINGS IN BAG AND AT BEDSIDE. ALL FORMS SIGNED AND FILED INTO CHART. IV ACCESS REMOVED AND PRESSURE DRESSING APPLIED. ID BAND REMOVED. PATIENT LEFT UNIT @1335, ACCOMPANIED BY TWO scheduling administrator. CHARGE NURSE AND MD AWARE OF DISCHARGE.
== END 2022-01-27 15:15 | DRG 641 ==
LOC: ER 20:00 → MED 01-24 00:43
PROVIDERS: ADMIT Nurse Practitioner Acute Care
DX: R62.7 Adult failure to thrive (principal); J98.11 Atelectasis; K21.9 Gastro-esophageal reflux disease without esophagitis; G40.909 Epilepsy, unspecified, not intractable, without status epilepticus; Z20.822 Contact with and (suspected) exposure to COVID-19; F20.9 Schizophrenia, unspecified; E78.5 Hyperlipidemia, unspecified; F29 Unspecified psychosis not due to a substance or known physiological condition; E11.9 Type 2 diabetes mellitus without complications; Z79.899 Other long term (current) drug therapy; N40.0 Benign prostatic hyperplasia without lower urinary tract symptoms; F41.9 Anxiety disorder, unspecified; G20 Parkinson's disease; F32.A Depression, unspecified; E66.9 Obesity, unspecified; Z68.32 Body mass index [BMI] 32.0-32.9, adult; I10 Essential (primary) hypertension
CPT/HCPCS: 36415; 71045-TC; 80048-TC; 80061-TC; 80076-TC; 82962-TC; 83735-TC; 83880; 84100-TC; 84443-TC; 84484-TC; 85025-TC; 87081-TC; 97116-TC; 97530-TC; C9803; G0378

== ENCOUNTER 2023-10-18 12:14 | Inpatient (IN) | payer MEDICARE, OTHER ==
[~2023-10-18] VITALS: Ht 177.8 cm; Wt 86.2 kg
[~2023-10-18 12:14] MED LIST changes: +BENZ0.5T43 PO; +CHOL100043 PO; +DIVA125C2 PO; +OMEG1CAP PO; +RISP0.2515 PO; -UNK HTN
[2023-10-18 13:02] LABS: BASOPHILS % (AUTO) 0.5 % (0.0-2.0); EOSINOPHILS # (AUTO) 0.2 K/uL (0.0-0.7); EOSINOPHILS % (AUTO) 2.7 % (0.0-6.0); HEMATOCRIT 45 % (39-51); HEMOGLOBIN 14.1 g/dL (13.5-17.5); LYMPHOCYTES # (AUTO) 2.9 K/uL (0.8-4.8); MEAN CORPUSCULAR HEMOGLOBIN 23 PG (26.0-33.0); MEAN CORPUSCULAR HGB CONC 31 g/dl (31.0-36.0); MEAN CORPUSCULAR VOLUME 73 fL (80-96); MONOCYTES # (AUTO) 0.5 K/uL (0.1-1.30); MONOCYTES % (AUTO) 8.6 % (2.0-12.0); NEUTROPHILS # (AUTO) 2.7 K/uL (1.8-8.9); NEUTROPHILS % (AUTO) 42.2 % (43.0-81.0); PLATELET COUNT (AUTO) 286 K/uL (150-450); RED CELL DISTRIBUTION WIDTH 16.1 % (11.5-15.0); WHITE BLOOD COUNT (AUTO) 6.4 K/uL (4.3-11.0)
[2023-10-18 13:44] LABS: ALANINE AMINOTRANSFERASE 31 U/L (12-78); ALBUMIN 3.7 g/dL (3.4-5.0); ALKALINE PHOSPHATASE 84 U/L (46-116); ASPARTATE AMINOTRANSFERASE 23 U/L (15-37); BILIRUBIN,DIRECT 0.2 mg/dL (0.0-0.2); BILIRUBIN,TOTAL 1.1 mg/dL (0.2-1.0); CALCIUM, SERUM 9.4 mg/dL (8.5-10.1); CARBON DIOXIDE 26 mmol/L (21-32); CHLORIDE 103 mmol/L (98-107); CREATININE 0.8 mg/dL (0.6-1.3); GLUCOSE 104 mg/dL (74-106); LIPASE 51 U/L (16-77); POTASSIUM 4.2 mmol/L (3.5-5.1); SODIUM SERUM 137 mmol/L (136-145); TOTAL PROTEIN, SERUM 7.9 g/dL (6.4-8.2); UREA NITROGEN, BLOOD 11 mg/dL (7-18)
[2023-10-18] MEDS ORDERED: DOCU-141 PO (14:38)
[2023-10-18] MEDS ORDERED: POLY17PO4 PO (14:38)
[2023-10-18] MEDS ORDERED: MAGN296S72 PO (14:38)
[2023-10-18] MEDS ORDERED: MAGNESIUM CITRATE 296 ML BOTTLE PO SCH (15:00)
[2023-10-18] MEDS ORDERED: MAGNESIUM HYDROXIDE 30 ML UDC PO PRN (15:30)
[2023-10-18] MEDS ORDERED: ONDANSETRON HCL/PF 4 MG/2 ML VIAL IVP PRN (15:30)
[2023-10-18] MEDS ORDERED: NA PHOS,M-B/NA PHOS,DI-BA 1 EA ENEMA RC PRN (15:30)
[2023-10-18] MEDS ORDERED: MAG HYDROX/AL HYDROX/SIMETH 30 ML UDC PO PRN (15:30)
[2023-10-18] MEDS ORDERED: Z GUARD REMEDY 4 OZ OINT TP PRN (15:30)
[2023-10-18 15:51] LABS: APPEARANCE,URINE CLEAR (CLEAR); BILIRUBIN,URINE NEGATIVE (NEGATIVE); BLOOD, URINE NEGATIVE Ery/uL (NEGATIVE); COLOR,URINE YELLOW (YELLOW); KETONES,URINE NEGATIVE (NEGATIVE); LEUKOCYTE ESTERASE ,URINE NEGATIVE (NEGATIVE); NITRITE, URINE NEGATIVE (NEGATIVE); PROTEIN,URINE NEGATIVE (NEGATIVE); UGLUCOSE NEGATIVE (NEGATIVE); UROBILINOGEN,URINE 0.2 EU/dL (0.2)
[2023-10-18 16:00] VITALS: BP 113/84; TEMP 97.5; O2SAT 97
[2023-10-18] MEDS ORDERED: DOCUSATE SODIUM 100 MG CAPSULE PO SCH ×2 (17:00)
[2023-10-18] MEDS ORDERED: Medication Not On Formulary EA (Omega-3 Fatty Acids/Fish Oil (Fish Oil 1,000 Mg Capsule) PO SCH (17:00)
[2023-10-18] MEDS ORDERED: risperiDONE 0.25 MG TABLET PO SCH ×4 (17:00→22:00)
[2023-10-18] MEDS ORDERED: DIVALPROEX SODIUM 125 MG CAP.SPRINK PO SCH (17:00)
[2023-10-18] MEDS: DIVALPROEX SODIUM 125 MG CAP.SPRINK PO SCH (17:57)
[2023-10-18] MEDS: DOCUSATE SODIUM 100 MG CAPSULE PO SCH (17:57)
[2023-10-18] MEDS: LACTULOSE 10 G/15 ML UDC (PYXIS) PO ONE (17:57)
[2023-10-18] MEDS: MAGNESIUM CITRATE 296 ML BOTTLE PO ONE (17:57)
[2023-10-18 18:00] VITALS: BP 147/92; TEMP 98.1; O2SAT 95
[2023-10-18 21:03] LABS: ANISOCYTOSIS 1+; LYMPHOCYTES % (MANUAL) 45 % (16-48); MONOCYTES % (MANUAL) 5 % (0-11.0); NEUTROPHILS % (MANUAL) 50 (42-76); PLATELET ESTIMATE ADEQUATE
[2023-10-18 21:04] LABS: HYPOCHROMASIA 1+; OVALOCYTES 1+; TARGET CELLS RARE
[2023-10-18] MEDS ORDERED: TAMSULOSIN 0.4 MG CAP.SR.24H PO SCH (22:00)
[2023-10-18] MEDS ORDERED: ATORVASTATIN 10 MG TABLET PO SCH (22:00)
[2023-10-18] MEDS ORDERED: BENZTROPINE MESYLATE 0.5 MG PO SCH (22:00)
[2023-10-18] MEDS: TAMSULOSIN 0.4 MG CAP.SR.24H PO SCH (22:08)
[2023-10-18] MEDS: ACETAMINOPHEN 325 MG TABLET PO PRN (22:09)
[2023-10-18] MEDS: ATORVASTATIN 10 MG TABLET PO SCH (22:09)
[2023-10-18] MEDS: ZOLPIDEM TARTRATE 5 MG TABLET PO PRN (22:09)
[2023-10-19] VITALS: BP 139/94; TEMP 98.9; O2SAT 97
[2023-10-19 06:44] LABS: BASOPHILS % (AUTO) 0.6 % (0.0-2.0); EOSINOPHILS # (AUTO) 0.2 K/uL (0.0-0.7); EOSINOPHILS % (AUTO) 3.1 % (0.0-6.0); HEMATOCRIT 41 % (39-51); HEMOGLOBIN 12.7 g/dL (13.5-17.5); LYMPHOCYTES # (AUTO) 3.3 K/uL (0.8-4.8); LYMPHOCYTES % (AUTO) 59.7 % (20.0-44.0); MEAN CORPUSCULAR HEMOGLOBIN 22 PG (26.0-33.0); MEAN CORPUSCULAR HGB CONC 31 g/dl (31.0-36.0); MEAN CORPUSCULAR VOLUME 71 fL (80-96); MONOCYTES # (AUTO) 0.5 K/uL (0.1-1.30); MONOCYTES % (AUTO) 9.8 % (2.0-12.0); NEUTROPHILS # (AUTO) 1.5 K/uL (1.8-8.9); NEUTROPHILS % (AUTO) 26.8 % (43.0-81.0); PLATELET COUNT (AUTO) 275 K/uL (150-450); RED BLOOD CELL COUNT(AUTO) 5.69 MIL/uL (4.5-6.0); RED CELL DISTRIBUTION WIDTH 15.7 % (11.5-15.0); WHITE BLOOD COUNT (AUTO) 5.6 K/uL (4.3-11.0)
[2023-10-19 07:21] LABS: CALCIUM, SERUM 8.8 mg/dL (8.5-10.1); CARBON DIOXIDE 28 mmol/L (21-32); CHLORIDE 103 mmol/L (98-107); CREATININE 0.9 mg/dL (0.6-1.3); GLUCOSE 96 mg/dL (74-106); PHOSPHORUS 3.3 mg/dL (2.5-4.9); POTASSIUM 3.9 mmol/L (3.5-5.1); SODIUM SERUM 139 mmol/L (136-145); UREA NITROGEN, BLOOD 11 mg/dL (7-18)
[2023-10-19 08:35] VITALS: BP 123/79; TEMP 97.9; O2SAT 100
[2023-10-19] MEDS: POLYETHYLENE GLYCOL 3350 17 GM POWD.PACK PO SCH (08:36)
[2023-10-19 08:39] LABS: MAGNESIUM 2.3 mg/dL (1.8-2.4)
[2023-10-19] MEDS ORDERED: POLYETHYLENE GLYCOL 3350 17 GM POWD.PACK PO SCH ×2 (09:00)
[2023-10-19] MEDS ORDERED: Medication Not On Formulary EA (Cholecalciferol (Vitamin D3) (Vitamin D3) 1,000 UNIT) PO SCH (09:00)
[2023-10-19 09:04] LABS: EOSINOPHILS % (MANUAL) 1 % (0-4); LYMPHOCYTES % (MANUAL) 57 % (16-48); MONOCYTES % (MANUAL) 7 % (0-11.0); NEUTROPHILS % (MANUAL) 35 (42-76)
[2023-10-19 09:05] LABS: BASOPHILS % (MANUAL) 0 % (0.0-2.0); PLATELET ESTIMATE ADEQUATE
[2023-10-19 16:32] VITALS: BP 122/75; TEMP 98.3; O2SAT 95
[2023-10-20] VITALS: BP 135/79; TEMP 97.2; O2SAT 97
[2023-10-20 07:12] LABS: BASOPHILS % (AUTO) 0.5 % (0.0-2.0); EOSINOPHILS # (AUTO) 0.2 K/uL (0.0-0.7); EOSINOPHILS % (AUTO) 3.4 % (0.0-6.0); HEMATOCRIT 40 % (39-51); HEMOGLOBIN 12.8 g/dL (13.5-17.5); LYMPHOCYTES # (AUTO) 2.8 K/uL (0.8-4.8); LYMPHOCYTES % (AUTO) 53.7 % (20.0-44.0); MEAN CORPUSCULAR HEMOGLOBIN 23 PG (26.0-33.0); MEAN CORPUSCULAR HGB CONC 32 g/dl (31.0-36.0); MEAN CORPUSCULAR VOLUME 71 fL (80-96); MONOCYTES # (AUTO) 0.5 K/uL (0.1-1.30); MONOCYTES % (AUTO) 10.3 % (2.0-12.0); NEUTROPHILS # (AUTO) 1.7 K/uL (1.8-8.9); NEUTROPHILS % (AUTO) 32.1 % (43.0-81.0); PLATELET COUNT (AUTO) 268 K/uL (150-450); RED BLOOD CELL COUNT(AUTO) 5.63 MIL/uL (4.5-6.0); RED CELL DISTRIBUTION WIDTH 15.5 % (11.5-15.0); WHITE BLOOD COUNT (AUTO) 5.2 K/uL (4.3-11.0)
[2023-10-20 07:30] LABS: CALCIUM, SERUM 8.6 mg/dL (8.5-10.1); CARBON DIOXIDE 27 mmol/L (21-32); CHLORIDE 104 mmol/L (98-107); CREATININE 0.7 mg/dL (0.6-1.3); GLUCOSE 103 mg/dL (74-106); POTASSIUM 4.1 mmol/L (3.5-5.1); SODIUM SERUM 140 mmol/L (136-145); UREA NITROGEN, BLOOD 12 mg/dL (7-18)
[2023-10-20 08:00] VITALS: BP 155/76; TEMP 97.9; O2SAT 100
[2023-10-20 16:00] VITALS: BP 122/75; TEMP 98.3; O2SAT 95
[2023-10-20 20:00] VITALS: BP 129/90; TEMP 98.4; O2SAT 97
[2023-10-21] VITALS: BP 129/90; TEMP 98.4; O2SAT 97
[2023-10-21 04:00] VITALS: BP 108/80; TEMP 97.5; O2SAT 95
[2023-10-21 08:00] VITALS: BP 126/68; TEMP 98.2; O2SAT 95
[2023-10-21] MEDS ORDERED: DOCU-141 PO (08:34)
== END 2023-10-21 14:50 | DRG 390 ==
LOC: ER 12:24 → MEDSG1 15:14
PROVIDERS: ADMIT Nurse Practitioner Acute Care; ATTEND Internal Medicine
DX: K56.7 Ileus, unspecified (principal); K59.09 Other constipation; N40.0 Benign prostatic hyperplasia without lower urinary tract symptoms; G40.909 Epilepsy, unspecified, not intractable, without status epilepticus; G20.A1 Parkinson's disease without dyskinesia, without mention of fluctuations; E11.9 Type 2 diabetes mellitus without complications; Z79.899 Other long term (current) drug therapy; R53.1 Weakness; E78.5 Hyperlipidemia, unspecified; F29 Unspecified psychosis not due to a substance or known physiological condition; F20.9 Schizophrenia, unspecified; F31.9 Bipolar disorder, unspecified; F41.9 Anxiety disorder, unspecified
CPT/HCPCS: 36415; 80048-TC; 80076-TC; 83690-TC; 83735-TC; 84100-TC; 85025-TC; 87086-TC; G0378

== ENCOUNTER 2024-02-16 16:18 | Inpatient (IN) | payer MEDICARE, OTHER ==
[~2024-02-16] VITALS: Ht 177.8 cm; Wt 90.7 kg
[~2024-02-16 16:18] MED LIST changes: -BENZ0.5T43 PO; +DOCU-141 PO; +MAGN296S72 PO; -OMEG1CAP PO; +POLY17PO4 PO; -RISP0.2515 PO
[2024-02-16 18:10] LABS: APPEARANCE,URINE CLEAR (CLEAR); BILIRUBIN,URINE 1+ (NEGATIVE); BLOOD, URINE NEGATIVE Ery/uL (NEGATIVE); COLOR,URINE YELLOW (YELLOW); KETONES,URINE NEGATIVE (NEGATIVE); LEUKOCYTE ESTERASE ,URINE NEGATIVE (NEGATIVE); NITRITE, URINE NEGATIVE (NEGATIVE); PH,URINE 5.5 (5.0-8.0); PROTEIN,URINE NEGATIVE (NEGATIVE); UGLUCOSE NEGATIVE (NEGATIVE)
[2024-02-16 18:24] LABS: AMPHETAMINE, URINE NEGATIVE (NEGATIVE); BARBITURATE, URINE NEGATIVE (NEGATIVE); BENZODIAZEPINE, URINE NEGATIVE (NEGATIVE); CANNABINOID, URINE NEGATIVE (NEGATIVE); COCCAINE, URINE NEGATIVE (NEGATIVE); OPIATE, URINE NEGATIVE (NEGATIVE); PHENCYCLIDINE SCREEN,URINE NEGATIVE (NEGATIVE)
[2024-02-16 18:45] LABS: BASOPHILS % (AUTO) 0.7 % (0.0-2.0); EOSINOPHILS # (AUTO) 0.2 K/uL (0.0-0.7); EOSINOPHILS % (AUTO) 4.3 % (0.0-6.0); HEMATOCRIT 41 % (39-51); HEMOGLOBIN 12.7 g/dL (13.5-17.5); LYMPHOCYTES # (AUTO) 2.4 K/uL (0.8-4.8); MEAN CORPUSCULAR HEMOGLOBIN 23 PG (26.0-33.0); MEAN CORPUSCULAR HGB CONC 31 g/dl (31.0-36.0); MEAN CORPUSCULAR VOLUME 73 fL (80-96); MONOCYTES # (AUTO) 0.4 K/uL (0.1-1.30); MONOCYTES % (AUTO) 9.5 % (2.0-12.0); NEUTROPHILS # (AUTO) 1.3 K/uL (1.8-8.9); NEUTROPHILS % (AUTO) 30.5 % (43.0-81.0); PLATELET COUNT (AUTO) 200 K/uL (150-450); RED BLOOD CELL COUNT(AUTO) 5.57 MIL/uL (4.5-6.0); RED CELL DISTRIBUTION WIDTH 16.1 % (11.5-15.0); WHITE BLOOD COUNT (AUTO) 4.4 K/uL (4.3-11.0)
[2024-02-16 19:19] LABS: ADD URINE CULTURE NO; BACTERIA,URINE None seen /HPF (None Seen); CALCIUM OXALATE CRYSTALS,UR Few /HPF (None Seen); MUCUS,URINE Few /LPF (None Seen); RBC,URINE 0-2 /HPF (0-2); SQUAMOUS EPITHELIAL CELL,UR 0-2 /HPF (None Seen); WBC,URINE 0-2 /HPF (0-3)
[2024-02-16 19:28] LABS: CALCIUM, SERUM 8.8 mg/dL (8.5-10.1); CARBON DIOXIDE 27 mmol/L (21-32); CHLORIDE 111 mmol/L (98-107); CREATININE 0.9 mg/dL (0.6-1.3); GLUCOSE 96 mg/dL (74-106); SODIUM SERUM 147 mmol/L (136-145); UREA NITROGEN, BLOOD 18 mg/dL (7-18)
[2024-02-16 19:33] LABS: ALANINE AMINOTRANSFERASE 33 U/L (12-78); ALBUMIN 3.2 g/dL (3.4-5.0); ALCOHOL, BLOOD < 3 mg/dL (0-10); ALKALINE PHOSPHATASE 83 U/L (46-116); ASPARTATE AMINOTRANSFERASE 22 U/L (15-37); BILIRUBIN,DIRECT 0.2 mg/dL (0.0-0.2); BILIRUBIN,TOTAL 0.7 mg/dL (0.2-1.0); TOTAL PROTEIN, SERUM 7.3 g/dL (6.4-8.2)
[2024-02-16 19:36] LABS: ACETAMINOPHEN 0 ug/ml (10-30); SALICYLATE < 0.2 mg/dL (2.8-20.0)
[2024-02-16] MEDS ORDERED: OLANZAPINE 10 MG VIAL IM ONE (21:04)
[2024-02-16] MEDS: OLANZAPINE 10 MG VIAL IM ONE (21:10)
[2024-02-16 22:30] VITALS: BP 111/75; TEMP 98.5; O2SAT 96
[2024-02-16] MEDS ORDERED: ACETAMINOPHEN 325 MG TABLET PO PRN (22:30)
[2024-02-16] MEDS ORDERED: LORAZEPAM 0.5 MG TABLET PO PRN (22:30)
[2024-02-16] MEDS ORDERED: TEMAZEPAM 7.5 MG CAPSULE PO PRN (22:30)
[2024-02-16] MEDS ORDERED: MAG HYDROX/AL HYDROX/SIMETH 30 ML UDC PO PRN (22:30)
[2024-02-16] MEDS ORDERED: MAGNESIUM HYDROXIDE 30 ML UDC PO PRN (22:30)
[2024-02-16] MEDS: BLOOD SUGAR DIAGNOSTIC 1 EACH STRIP IN ONE (22:35)
[2024-02-16 23:55] LABS: ANISOCYTOSIS 1+; BASOPHILS % (MANUAL) 0 % (0.0-2.0); EOSINOPHILS % (MANUAL) 6 % (0-4); HYPOCHROMASIA FEW; LYMPHOCYTES % (MANUAL) 48 % (16-48); MONOCYTES % (MANUAL) 11 % (0-11.0); NEUTROPHILS % (MANUAL) 35 (42-76); PLATELET ESTIMATE ADEQUATE
[2024-02-17 06:44] VITALS: BP 111/75; TEMP 98.5; O2SAT 96
[2024-02-17 08:00] VITALS: BP 123/74; TEMP 98.1; O2SAT 100
[2024-02-17] MEDS: CHOLECALCIFEROL 1,000 UNIT TABLET (VIT D3) PO SCH (08:48)
[2024-02-17] MEDS ORDERED: Medication Not On Formulary EA (Cholecalciferol (Vitamin D3) (Vitamin D3) 25 MCG) PO SCH (09:00)
[2024-02-17] MEDS: DIVALPROEX SODIUM 125 MG CAP.SPRINK PO SCH (11:00)
[2024-02-17] MEDS: risperiDONE 1 MG TABLET PO SCH (11:00)
[2024-02-17 15:30] LABS: ALBUMIN 2.9 g/dL (3.4-5.0); BILIRUBIN,TOTAL 0.8 mg/dL (0.2-1.0); CALCIUM, SERUM 8.6 mg/dL (8.5-10.1); CREATININE 0.9 mg/dL (0.6-1.3); POTASSIUM 3.8 mmol/L (3.5-5.1); TOTAL PROTEIN, SERUM 6.7 g/dL (6.4-8.2)
[2024-02-17 15:32] LABS: CHOLESTEROL 154 mg/dL (<200); HDL CHOLESTEROL 32 mg/dL (40-60); LDL 78 mg/dL (0-99); TRIGLYCERIDES 123 mg/dL (30-150)
[2024-02-17 16:00] VITALS: BP 116/75; TEMP 98.4; O2SAT 98
[2024-02-17 19:02] LABS: CREATININE 0.9 mg/dL (0.6-1.3)
[2024-02-17 20:11] VITALS: BP 117/79; TEMP 98.4; O2SAT 96
[2024-02-17] MEDS: ATORVASTATIN 10 MG TABLET PO SCH (21:48)
[2024-02-17] MEDS: TAMSULOSIN 0.4 MG CAP.SR.24H PO SCH (21:48)
[2024-02-18 08:00] VITALS: BP 127/87; TEMP 97.6; O2SAT 99
[2024-02-18 16:00] VITALS: BP 123/86; TEMP 97.7; O2SAT 99
[2024-02-18 20:00] VITALS: BP 115/70; TEMP 97.9; O2SAT 100
[2024-02-19 08:58] VITALS: BP 135/88; TEMP 97.7; O2SAT 100
[2024-02-19 16:00] VITALS: BP 122/78; TEMP 97.3; O2SAT 95
[2024-02-19 21:06] VITALS: BP 131/76; TEMP 98.2; O2SAT 100
[2024-02-20 08:00] VITALS: BP 135/85; TEMP 97.8; O2SAT 98
[2024-02-20 16:00] VITALS: BP 103/63; TEMP 98.2; O2SAT 96
[2024-02-20 20:52] VITALS: BP 105/64; TEMP 98.3; O2SAT 98
[2024-02-21 08:00] VITALS: BP 117/83; TEMP 97.8; O2SAT 98
[2024-02-21 16:00] VITALS: BP 111/62; TEMP 98.6; O2SAT 99
[2024-02-21 20:13] VITALS: BP 105/56; TEMP 98.4; O2SAT 98
[2024-02-22 08:00] VITALS: BP 117/69; TEMP 97.9; O2SAT 96
[2024-02-22 16:00] VITALS: BP 104/83; TEMP 98.7; O2SAT 96
[2024-02-22 20:00] VITALS: BP 101/52; TEMP 98.6; O2SAT 98
[2024-02-23 08:00] VITALS: BP 130/82; TEMP 98; O2SAT 98
[2024-02-23 15:56] VITALS: BP 107/67; TEMP 98.1; O2SAT 98
[2024-02-23 20:00] VITALS: BP 114/81; TEMP 98.2; O2SAT 98
[2024-02-24 08:00] VITALS: BP 110/73; TEMP 98.6; O2SAT 97
[2024-02-24] MEDS: DIVALPROEX SODIUM 125 MG CAP.SPRINK PO SCH (11:24)
[2024-02-24] MEDS: risperiDONE 1 MG TABLET PO SCH (11:25)
[2024-02-24] MEDS: OLANZAPINE 10 MG VIAL IM PRN (11:27)
[2024-02-24 16:00] VITALS: BP 123/72; TEMP 98.9; O2SAT 98
[2024-02-24 20:00] VITALS: BP 118/78; TEMP 98.7; O2SAT 99
[2024-02-25 08:00] VITALS: BP 108/82; TEMP 97.7; O2SAT 99
[2024-02-25 16:00] VITALS: BP 121/80; TEMP 97.6; O2SAT 98
[2024-02-25 19:50] VITALS: BP 131/77; TEMP 97.8; O2SAT 98
[2024-02-26 08:00] VITALS: BP 122/77; TEMP 97.9; O2SAT 94
[2024-02-26 16:00] VITALS: BP 116/78; TEMP 97.7; O2SAT 99
[2024-02-26 20:25] VITALS: BP 116/79; TEMP 98; O2SAT 98
[2024-02-27 08:00] VITALS: BP 120/74; TEMP 97.8; O2SAT 98
[2024-02-27 16:00] VITALS: BP 107/61; TEMP 97.9; O2SAT 98
[2024-02-27 20:49] VITALS: BP 110/70; TEMP 97.9; O2SAT 97
[2024-02-28 08:00] VITALS: BP 137/76; TEMP 98.2; O2SAT 98
[2024-02-28 16:00] VITALS: BP 115/72; TEMP 98.8; O2SAT 100
[2024-02-28 20:35] VITALS: BP 114/58; TEMP 98.8; O2SAT 97
[2024-02-28] MEDS: risperiDONE 1 MG TABLET PO SCH (22:01)
[2024-02-29 08:00] VITALS: BP 109/80; TEMP 97.7; O2SAT 99
[2024-02-29 16:00] VITALS: BP 108/73; TEMP 98.6; O2SAT 98
[2024-02-29 20:00] VITALS: BP 115/73; TEMP 98.6; O2SAT 99
[2024-03-01 08:00] VITALS: BP 121/73; TEMP 97.9; O2SAT 99
[2024-03-01 16:00] VITALS: BP 110/77; TEMP 98.7; O2SAT 98
[2024-03-01 20:00] VITALS: BP 107/76; TEMP 98.2; O2SAT 99
[2024-03-02 08:00] VITALS: BP 103/70; TEMP 98.6; O2SAT 98
== END 2024-03-02 13:20 | DRG 885 ==
LOC: ER 16:26 → GPS 21:23
PROVIDERS: ADMIT Psychiatry & Neurology Psychosomatic Medicine; ATTEND Nurse Practitioner Family
DX: F25.9 Schizoaffective disorder, unspecified (principal); E46 Unspecified protein-calorie malnutrition; E87.0 Hyperosmolality and hypernatremia; F03.93 Unspecified dementia, unspecified severity, with mood disturbance; F29 Unspecified psychosis not due to a substance or known physiological condition; N40.0 Benign prostatic hyperplasia without lower urinary tract symptoms; E55.9 Vitamin D deficiency, unspecified; E11.9 Type 2 diabetes mellitus without complications; E66.9 Obesity, unspecified; E78.5 Hyperlipidemia, unspecified; E88.09 Other disorders of plasma-protein metabolism, not elsewhere classified; Z91.199 Patient's noncompliance with other medical treatment and regimen due to unspecified reason; Z20.822 Contact with and (suspected) exposure to COVID-19; Z73.6 Limitation of activities due to disability; Z68.28 Body mass index [BMI] 28.0-28.9, adult; F39 Unspecified mood [affective] disorder
CPT/HCPCS: 36415; 70450-TC; 80048-TC; 80053-TC; 80061-TC; 80076-TC; 81001; 82565-TC; 83690-TC; 84484-TC; 85025-TC; 87081-TC; G0480; J3490